=== PATIENT | male | born 1980 | race Caucasian/White ===

== ENCOUNTER 2022-10-17 17:04 | Emergency (ER) | payer SELFPAY ==
[2022-10-17 17:19] VITALS: BP 138/86; PULSE 62; RESP 16; TEMP 36.7; O2SAT 99; BMI 26.6
[2022-10-17] MEDS: Ondansetron ODT 4 MG TAB.RAPDIS TRANSLINGU (17:26)
--- NOTE | 2022-10-17 17:42 | ED.NAVMDI ---
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 Patient never been treated for hepatitis-C no follow-up with food production machine operator at this time and examined patient was sleeping without any significant distress patient used 2 bags of heroin earlier today <Miguel Pedraza MD - Last Filed: 10/17/22 22:13> Related Data Home medications: Previous Rx's Medication Instructions Recorded pantoprazole 40 mg tablet,delayed 40 mg PO DAILY #30 tabs 10/17/22 release (Protonix) sucralfate 1 gram tablet 1 g PO TID #90 tabs 10/17/22 <Hattie Perry NP - Last Filed: 10/17/22 17:43> Allergies/Adverse reactions: Allergies Allergy/AdvReac Type Severity Reaction Status Date / Time No Known Allergies Allergy Verified 10/17/22 17:43 <Hattie Perry NP - Last Filed: 10/17/22 17:43> Review of Systems Review of Systems: Yes all other systems are reviewed and are negative <Miguel Pedraza MD - Last Filed: 10/17/22 22:13> PMFSH Social History Social History: Social History Advance Directives: No <Hattie Perry NP - Last Filed: 10/17/22 17:43> Physical Exam Vital Signs: Vital Signs: Last Vital Signs Temp 98.2 F 10/17/22 21:17 Pulse 60 10/17/22 21:17 Resp 16 10/17/22 17:19 BP 128/80 10/17/22 21:17 Pulse Ox 97 10/17/22 21:17 O2 Del Method 10/17/22 21:17 BMI result Body Mass Index 26.6 <Hattie Perry NP - Last Filed: 10/17/22 17:43> Vital Signs: Last Vital Signs Temp 98.2 F 10/17/22 21:17 Pulse 60 10/17/22 21:17 Resp 16 10/17/22 17:19 BP 128/80 10/17/22 21:17 Pulse Ox 97 10/17/22 21:17 O2 Del Method 10/17/22 21:17 BMI result Body Mass Index 26.6 <Miguel Pedraza MD - Last Filed: 10/17/22 22:13> Appearance: Alert. Oriented X3. No acute distress. Eyes: PERRLA, No Nystagmus ENT: Pharynx normal. Oral Mucosa moist Neck: Normal inspection. Neck supple. CVS: Normal heart rate and rhythm. Pulses normal. Respiratory: No respiratory distress. Equal air entry bilateral, no wheezing/rales/rhonchi Abdomen: Soft , mild epigastric tenderness Bowel sounds are present, no mass palpable, no CVA tenderness Skin: Skin warm and dry. Normal skin color. Normal skin turgor. Extremities: No lower extremity edema. No calf tenderness Neuro: Oriented X 3. No motor deficit. <Miguel Pedraza MD - Last Filed: 10/17/22 22:13> Course Course Course Narrative: This is a rapid medical exam. Deferred additional HPI, ROS, PE to primary provider. 42-year-old male here with nausea, vomiting, upper abdominal pain and chills for 3 days. Will send testing for COVID, flu, RSV, check labs UA. Will give zofran. Vitals stable <Hattie Perry NP - Last Filed: 10/17/22 17:43> Medications Administered Discontinued Medications Generic Name Dose Route Start Last Admin Trade Name Freq PRN Reason Stop Dose Admin Al Hydroxide/Mg Hydroxide 30 ml 12/14/22 22:00 10/17/22 22:06 Magnesium Hydrox/Alum Hydrox 30 Ml Oral.Susp PO 10/17/22 22:01 30 ml ONCE ONE Administration Omeprazole 40 mg 10/17/22 22:00 10/17/22 22:06 Omeprazole 40 Mg Capsule. PO 10/17/22 22:01 40 mg ONCE ONE Administration Ondansetron HCl 4 mg 10/17/22 17:21 10/17/22 17:26 Ondansetron Odt 4 Mg Tab.Rapdis TRANSLINGU 10/17/22 17:22 4 mg ONCE ONE Administration <Hattie Perry NP - Last Filed: 10/17/22 17:43> Medications Administered Discontinued Medications Generic Name Dose Route Start Last Admin Trade Name Myronq PRN Reason Stop Dose Admin Al Hydroxide/Mg Hydroxide 30 ml 10/17/22 22:00 10/17/22 22:06 Magnesium Hydrox/Alum Hydrox 30 Ml Oral.Susp PO 10/17/22 22:01 30 ml ONCE ONE Administration Omeprazole 40 mg 10/17/22 22:00 10/17/22 22:06 Omeprazole 40 Mg Capsule. PO 10/17/22 22:01 40 mg ONCE ONE Administration Ondansetron HCl 4 mg 10/17/22 17:21 10/17/22 17:26 Ondansetron Odt 4 Mg Tab.Rapdis TRANSLINGU 10/17/22 17:22 4 mg ONCE ONE Administration <Miguel Pedraza MD - Last Filed: 10/17/22 22:13> Medical Decision Making Medical Decision Making [facility] Narrative: Patient has symptoms of gastritis discharge patient home on Protonix and sucralfate advised to follow with food production machine operator <Miguel Pedraza MD - Last Filed: 10/17/22 22:13> Lab Data MDM Lab Attestation statement: I reviewed the patient's lab results. <Miguel Pedraza MD - Last Filed: 10/17/22 22:13> Result Diagrams: : 10/17/22 17:46 10/17/22 17:46 <Hattie Perry NP - Last Filed: 10/17/22 17:43> Labs: Lab Results 12/14/22 12/14/22 12/14/22 Range/Units 17:46 17:46 17:46 WBC 8.0 (4.8-10.8) X10*3/uL RBC 4.83 (4.60-5.80) X10*6/uL Hgb 14.2 (14.0-18.0) g/dl Hct 41.7 L (42.0-52.0) % MCV 86.3 (80.0-98.0) fL MCH 29.4 (27.0-33.0) pg MCHC 34.1 (31.0-36.0) g/dl RDW 13.9 (11.0-16.0) % Plt Count 162 (160-400) X10*3/uL MPV 10.9 (9.4-12.4) fL Immature Gran % (Auto) 0.3 (0.0-0.4) % Neut % (Auto) 48.8 (45-73) % Lymph % (Auto) 41.2 H (20-40) % [place] % (Auto) 6.8 (2-11) % Eos % (Auto) 2.5 (0-4) % Baso % (Auto) 0.4 (0-2) % Lymph # (Auto) 3.3 (1.2-4.9) X10*3/uL [place] # (Auto) 0.5 (0.1-1.2) X10*3/uL Eos # (Auto) 0.2 (0.0-0.4) X10*3/uL Baso # (Auto) 0.0 (0.0-0.2) X10*3/uL Abs Immat Gran (auto) 0.02 (0.00-0.03) X10*3/uL Absolute Neuts (auto) 3.9 (2.0-8.3) x10*3/uL Absolute Nucleated RBC 0.000 (0.0-0.012) X10*3/uL Nucleated RBC % (auto) 0.0 (0.0-0.2) /100WBC Sodium 138 (135-145) mmol/L Potassium 3.9 (3.3-5.1) mmol/L Chloride 101 (96-108) mmol/L Carbon Dioxide 29 (22-29) mmol/L Anion Gap 12 (12-20) BUN 11 (9-16) mg/dL Creatinine 0.70 (0.5-1.4) mg/dL Estim Creat Clear Calc 118.3 Estimated GFR > 60 Random Glucose 119 H (60-115) mg/dL Calcium 8.9 (8.4-10.2) mg/dL Total Bilirubin 0.7 (0.0-1.0) mg/dL Direct Bilirubin 0.4 (0.0-0.5) mg/dL AST 79 H (5-37) U/L ALT 301 H (0-40) U/L Alkaline Phosphatase 328 H (39-117) U/L Total Protein 6.6 (6.5-8.0) g/dL Albumin 3.5 (3.5-5.0) g/dL Lipase 19 (8-78) U/L Influenza Type A (PCR) NEGATIVE (Negative) Influenza Type B (PCR) NEGATIVE (Negative) RSV RNA Qual (PCR) NEGATIVE (Negative) SARS-CoV-2 RNA (RT-PCR) NEGATIVE (Negative) <Hattie Perry, MARIO - Last Filed: 10/17/22 17:43> Lab Results 10/17/22 10/17/22 10/17/22 Range/Units 17:46 17:46 17:46 WBC 8.0 (4.8-10.8) X10*3/uL RBC 4.83 (4.60-5.80) X10*6/uL Hgb 14.2 (14.0-18.0) g/dl Hct 41.7 L (42.0-52.0) % MCV 86.3 (80.0-98.0) fL MCH 29.4 (27.0-33.0) pg MCHC 34.1 (31.0-36.0) g/dl RDW 13.9 (11.0-16.0) % Plt Count 162 (160-400) X10*3/uL MPV 10.9 (9.4-12.4) fL Immature Gran % (Auto) 0.3 (0.0-0.4) % Neut % (Auto) 48.8 (45-73) % Lymph % (Auto) 41.2 H (20-40) % [place] % (Auto) 6.8 (2-11) % Eos % (Auto) 2.5 (0-4) % Baso % (Auto) 0.4 (0-2) % Lymph # (Auto) 3.3 (1.2-4.9) X10*3/uL [place] # (Auto) 0.5 (0.1-1.2) X10*3/uL Eos # (Auto) 0.2 (0.0-0.4) X10*3/uL Baso # (Auto) 0.0 (0.0-0.2) X10*3/uL Abs Immat Gran (auto) 0.02 (0.00-0.03) X10*3/uL Absolute Neuts (auto) 3.9 (2.0-8.3) x10*3/uL Absolute Nucleated RBC 0.000 (0.0-0.012) X10*3/uL Nucleated RBC % (auto) 0.0 (0.0-0.2) /100WBC Sodium 138 (135-145) mmol/L Potassium 3.9 (3.3-5.1) mmol/L Chloride 101 (96-108) mmol/L Carbon Dioxide 29 (22-29) mmol/L Anion Gap 12 (12-20) BUN 11 (9-16) mg/dL Creatinine 0.70 (0.5-1.4) mg/dL Estim Creat Clear Calc 118.3 Estimated GFR > 60 Random Glucose 119 H (60-115) mg/dL Calcium 8.9 (8.4-10.2) mg/dL Total Bilirubin 0.7 (0.0-1.0) mg/dL Direct Bilirubin 0.4 (0.0-0.5) mg/dL AST 79 H (5-37) U/L ALT 301 H (0-40) U/L Alkaline Phosphatase 328 H (39-117) U/L Total Protein 6.6 (6.5-8.0) g/dL Albumin 3.5 (3.5-5.0) g/dL Lipase 19 (8-78) U/L Influenza Type A (PCR) NEGATIVE (Negative) Influenza Type B (PCR) NEGATIVE (Negative) RSV RNA Qual (PCR) NEGATIVE (Negative) SARS-CoV-2 RNA (RT-PCR) NEGATIVE (Negative) <Miguel Pedraza MD - Last Filed: 10/17/22 22:13> Discharge Plan Discharge Clinical Impression: Gastritis, Substance abuse <Hattie Perry NP - Last Filed: 10/17/22 17:43> Patient Disposition: Home, Self-Care <Hattie Perry NP - Last Filed: 10/17/22 17:43> Instructions: Gastritis (ED), Polysubstance Abuse (ED) <Hattie Perry NP - Last Filed: 10/17/22 17:43> Additional Instructions: Take medication as prescribed and follow-up with food production machine operator Stop using drugs <Hattie Perry NP - Last Filed: 10/17/22 17:43> Prescriptions: New pantoprazole [Protonix] 40 mg tablet,delayed release (DR/EC) 40 mg PO DAILY Qty: 30 0RF sucralfate 1 gram tablet 1 g PO TID Qty: 90 0RF <Hattie Perry NP - Last Filed: 10/17/22 17:43>
[2022-10-17 17:50] LABS: MANUAL DIFF FLAG NO
[2022-10-17 17:57] LABS: Basophils Percent Auto 0.4 % (0-2); Eosinophils Absolute Auto 0.2 X10*3/uL (0.0-0.4); Eosinophils Percent Auto 2.5 % (0-4); Hematocrit 41.7 % (42.0-52.0); Hemoglobin 14.2 g/dl (14.0-18.0); Imm Gran Abs Auto 0.02 X10*3/uL (0.00-0.03); Imm Gran Pct Auto 0.3 % (0.0-0.4); Lymphocytes Absolute Auto 3.3 X10*3/uL (1.2-4.9); Lymphocytes Percent Auto 41.2 % (20-40); Mean Corpuscular HGB Conc 34.1 g/dl (31.0-36.0); Mean Corpuscular Hemoglobin 29.4 pg (27.0-33.0); Mean Corpuscular Volume 86.3 fL (80.0-98.0); Mean Platelet Volume 10.9 fL (9.4-12.4); Monocytes Absolute Auto 0.5 X10*3/uL (0.1-1.2); Monocytes Percent Auto 6.8 % (2-11); Neutrophils Absolute Auto 3.9 x10*3/uL (2.0-8.3); Neutrophils Percent Auto 48.8 % (45-73); Platelet Count 162 X10*3/uL (160-400); Red Blood Count 4.83 X10*6/uL (4.60-5.80); Red Cell Distribution Width 13.9 % (11.0-16.0)
[2022-10-17 18:13] LABS: Alanine Aminotransferase 301 U/L (0-40); Albumin Level 3.5 g/dL (3.5-5.0); Alkaline Phosphatase 328 U/L (39-117); Anion Gap 12 (12-20); Aspartate Amino Transferase 79 U/L (5-37); Bilirubin Direct 0.4 mg/dL (0.0-0.5); Bilirubin Total 0.7 mg/dL (0.0-1.0); Blood Urea Nitrogen 11 mg/dL (9-16); Calcium 8.9 mg/dL (8.4-10.2); Carbon Dioxide 29 mmol/L (22-29); Chloride 101 mmol/L (96-108); Creatinine Clr Calc Pharmacy 118.3; Estimated Glomerular Filt Rate > 60; Glucose Random 119 mg/dL (60-115); Lipase 19 U/L (8-78); Potassium 3.9 mmol/L (3.3-5.1); Sodium 138 mmol/L (135-145); Total Protein 6.6 g/dL (6.5-8.0)
[2022-10-17 18:35] LABS: Influenza A PCR NEGATIVE (Negative); Influenza B PCR NEGATIVE (Negative); Resp Syncy Virus RNA Qual PCR NEGATIVE (Negative); SARS COV2 PCR INHOUSE NEGATIVE (Negative)
[2022-10-17 21:17] VITALS: BP 128/80; PULSE 60; TEMP 36.8; O2SAT 97
[2022-10-17] MEDS: Omeprazole 40 MG CAPSULE.DR PO (22:06)
[2022-10-17] MEDS: Magnesium Hydrox/Alum Hydrox 30 ML ORAL.SUSP PO (22:06)
== END 2022-10-17 22:20 | disposition home or self-care (01) ==
PROVIDERS: Nurse Practitioner Family; Emergency Provider Internal Medicine
DX: K29.70 Gastritis, unspecified, without bleeding (principal); F19.10 Other psychoactive substance abuse, uncomplicated; Z20.822 Contact with and (suspected) exposure to COVID-19; R11.2 Nausea with vomiting, unspecified; F11.20 Opioid dependence, uncomplicated; B19.20 Unspecified viral hepatitis C without hepatic coma
CPT/HCPCS: 0241U; 80048; 80076; 83690; 85025; 99283